=== PATIENT | female | born 1965 | race African-American/Black ===

== ENCOUNTER 2024-08-23 14:44 | Inpatient (IN) | payer MEDICARE, OTHER ==
[~2024-08-23] VITALS: Ht 154.9 cm; Wt 99.8 kg
[2024-08-23 14:47] VITALS: TEMP 98
[2024-08-23 15:17] LABS: BASOPHILS % (AUTO) 0.7 % (0.0-2.0); EOSINOPHILS # (AUTO) 0.2 K/uL (0.0-0.7); EOSINOPHILS % (AUTO) 3.7 % (0.0-6.0); HEMATOCRIT 34 % (33-45); HEMOGLOBIN 11.2 g/dL (11.5-14.8); LYMPHOCYTES # (AUTO) 1.8 K/uL (0.8-4.8); LYMPHOCYTES % (AUTO) 37.5 % (20.0-44.0); MEAN CORPUSCULAR HEMOGLOBIN 29 PG (26.0-33.0); MEAN CORPUSCULAR HGB CONC 33 g/dl (31.0-36.0); MEAN CORPUSCULAR VOLUME 89 fL (82-100); MONOCYTES # (AUTO) 0.3 K/uL (0.1-1.30); MONOCYTES % (AUTO) 7.1 % (2.0-12.0); NEUTROPHILS # (AUTO) 2.5 K/uL (1.8-8.9); PLATELET COUNT (AUTO) 304 K/uL (150-450); RED BLOOD CELL COUNT(AUTO) 3.83 MIL/uL (4.0-5.2); WHITE BLOOD COUNT (AUTO) 4.9 K/uL (4.3-11.0)
[2024-08-23 15:27] LABS: CALCIUM, SERUM 8.9 mg/dL (8.5-10.1); CARBON DIOXIDE 29 mmol/L (21-32); CHLORIDE 105 mmol/L (98-107); CREATININE 1.1 mg/dL (0.6-1.3); GLUCOSE 90 mg/dL (74-106); POTASSIUM 3.9 mmol/L (3.5-5.1); SODIUM SERUM 138 mmol/L (136-145); UREA NITROGEN, BLOOD 13 mg/dL (7-18)
[2024-08-23 15:39] LABS: NT-PRO BNP 69 pg/mL (0-125)
[2024-08-23 16:00] VITALS: BP 129/76; O2SAT 98
[2024-08-23] MEDS ORDERED: METO25TA4 PO (17:28)
[2024-08-23] MEDS ORDERED: CLOP75TA15 PO (17:28)
[2024-08-23] MEDS ORDERED: DULO60CA64 PO (17:28)
[2024-08-23] MEDS ORDERED: CHOL500052 PO (17:28)
[2024-08-23] MEDS ORDERED: CYAN-51 PO (17:28)
[2024-08-23] MEDS ORDERED: MONT10TA22 PO (17:28)
[2024-08-23] MEDS ORDERED: BACL10TA PO (17:28)
[2024-08-23] MEDS ORDERED: PANT40TA49 PO (17:28)
[2024-08-23] MEDS ORDERED: ATOR40TA PO (17:28)
[2024-08-23] MEDS ORDERED: NORT75CA PO (17:28)
[2024-08-23] MEDS ORDERED: LINA290C PO (17:28)
[2024-08-23] MEDS ORDERED: AMLO-213 PO (17:28)
[2024-08-23] MEDS ORDERED: LEVO88TA5 PO (17:28)
[2024-08-23] MEDS ORDERED: LAMO150T6 PO (17:28)
[2024-08-23] MEDS ORDERED: [UNRECOGNIZED DRUG - CODE] PO (17:28)
[2024-08-23] MEDS ORDERED: NITR0.3T SL (17:29)
[2024-08-23] MEDS ORDERED: LOSA1TAB39 PO (17:29)
[2024-08-23] MEDS ORDERED: BUDE10.2 IH (17:29)
[2024-08-23] MEDS: ASPIRIN 81 MG TAB.CHEW PO SCH (18:00)
[2024-08-23] MEDS ORDERED: ONDANSETRON HCL/PF 4 MG/2 ML VIAL IVP PRN (18:00)
[2024-08-23] MEDS ORDERED: MAGNESIUM HYDROXIDE 30 ML UDC PO PRN (18:00)
[2024-08-23] MEDS ORDERED: HYDROCODONE/APAP 5/325MG TABLET PO PRN (18:00)
[2024-08-23] MEDS ORDERED: PREGABALIN 100 MG CAPSULE PO PRN (18:00)
[2024-08-23] MEDS ORDERED: MAG HYDROX/AL HYDROX/SIMETH 30 ML UDC PO PRN (18:00)
[2024-08-23] MEDS ORDERED: ACETAMINOPHEN 325 MG TABLET PO PRN (18:00)
[2024-08-23] MEDS ORDERED: Z GUARD REMEDY 4 OZ OINT TP PRN (18:00)
[2024-08-23] MEDS ORDERED: NITROGLYCERIN 0.3 MG TAB.SUBL SL PRN (18:00)
[2024-08-23] MEDS ORDERED: ALBUTEROL FS 2.5 MG/3 ML VIAL.NEB NEB SCH (19:30)
[2024-08-23] MEDS ORDERED: DULOXETINE HCL 30 MG CAPSULE.DR PO SCH (22:00)
[2024-08-23] MEDS ORDERED: NORTRIPTYLINE HCL 25 MG CAPSULE PO SCH (22:00)
[2024-08-23] MEDS ORDERED: ATORVASTATIN 40 MG TABLET PO SCH (22:00)
[2024-08-24] MEDS ORDERED: BUDESONIDE RESPULE INH 0.5 MG/2 ML AMPUL.NEB NEB SCH (07:05)
[2024-08-24] MEDS ORDERED: LEVOTHYROXINE SODIUM 88 MCG TABLET PO SCH (07:30)
[2024-08-24] MEDS ORDERED: CLOPIDOGREL BISULFATE 75 MG TABLET PO SCH (09:00)
[2024-08-24] MEDS ORDERED: BACLOFEN (10 MG) 10 MG TABLET PO SCH (09:00)
[2024-08-24] MEDS ORDERED: AMLODIPINE BESYLATE 10 MG TABLET PO SCH (09:00)
[2024-08-24] MEDS ORDERED: METOPROLOL SUCCINATE 25 MG TAB.SR.24H PO SCH (09:00)
[2024-08-24] MEDS ORDERED: LamoTRIgine 100 MG TABLET PO SCH (09:00)
[2024-08-24] MEDS ORDERED: MONTELUKAST SODIUM (10MG) 10 MG TABLET PO SCH (09:00)
[2024-08-24] MEDS ORDERED: PANTOPRAZOLE 40 MG TABLET.DR PO SCH (09:00)
== END 2024-08-23 18:49 | disposition left against medical advice (07) | DRG 313 ==
LOC: ER 15:01 → TELE 17:14 → TELE1 17:27
PROVIDERS: ADMIT Internal Medicine; ATTEND Internal Medicine
DX: R07.9 Chest pain, unspecified (principal); R42 Dizziness and giddiness; I25.2 Old myocardial infarction; Z95.5 Presence of coronary angioplasty implant and graft
CPT/HCPCS: 36415; 70450-TC; 71045-TC; 80048-TC; 83880; 84484-TC; 85025-TC; G0378